=== PATIENT | female | born 1995 | race Caucasian/White ===

== ENCOUNTER 2017-05-02 18:33 | Emergency (ER) | payer OTHER ==
--- NOTE | 2017-05-02 18:51 | EDPHY ---
H & P Time Seen by Provider: 05/02/17 18:39 HPI/ROS: Chief complaint: Right hand laceration History of present illness: This is a 21-year-old female who presents to the emergency department for right hand laceration. Patient was sharpening her ski edges when her hand slipped and she cut her right hand on it. Small wound with a mild pain and bleeding that has been controlled. She states she is able to move the hand well, specifically all digits and the wrist without difficulty. No report of abnormal coolness or paresthesias in the hand. She believes her tetanus is up-to-date. Smoking Status: Never smoked Physical Exam: General: Alert, nontoxic Skin: There is a 1.5 cm avulsion to the right thenar eminence. Exploration does not reveal deep structure involvement. Musculoskeletal: Patient moving all joints in all digits in all clemente in the right hand well. She is moving the wrist in all clemente well. Vascular: Capillary refill brisk in all digits of the right hand. Radial pulse 2 +. Neurologic: Decreased sensation around the wound over the thenar eminence. Sensation is otherwise intact throughout the rest of the right hand including all digits. Constitutional: Initial Vital Signs Temperature (C) 36.9 C 05/02/17 18:35 Heart Rate 79 05/02/17 18:35 Respiratory Rate 16 05/02/17 18:35 Blood Pressure 108/84 H 05/02/17 18:35 O2 Sat (%) 98 05/02/17 18:35 O2 Delivery Mode Room Air Allergies/Adverse Reactions: No Known Allergies Allergy (Verified 05/02/17 18:34) Home Medications: Medication Instructions Recorded NK [No Known Home Meds] 05/02/17 MDM/Departure - MDM Procedures: Procedure: Laceration repair. Verbal consent was obtained from the patient. The 1.5 cm skin avulsion on the right thenar eminence was anesthetized in the usual fashion. The wound was irrigated, draped and explored to its base with a gloved finger. There were no deep structures involved. No tendon injury was identified. The wound was repaired with 6 0 Prolene, 4 simple interrupted sutures. The wound repair was simple. The procedure was performed by myself. Procedure: Splint placement. A Velcro thumb spica splint was applied. After application of the splint I returned and re-examined the patient. The splint was adequately immobilizing the joint and distal to the splint the patient's circulation and sensation was intact. ED Course/Re-evaluation: Patient is seen under the supervision of my primary supervising physician Dr. Mine Whelan. Patient presents to the emergency department for a right thumb laceration. I am somewhat concerned with decreased sensation around the wound on the thenar eminence. She has good vascular supply to the right hand. Wound is anesthetized, cleaned and repaired. It is splinted. I have discussed the importance of close follow-up with a hand doctor for recheck. Referral information is provided. Return precautions are given. Patient voiced understanding and agreement with plan. Differential Diagnosis: Included but not limited to soft tissue injury, deep structure injury, foreign body contamination - Depart Disposition: Home, Routine, Self-Care Clinical Impression: Hand laceration Qualifiers: Encounter type: initial encounter Foreign body presence: without foreign body Laterality: right Qualified Code(s): S61.411A - Laceration without foreign body of right hand, initial encounter Condition: Good Instructions: Care For Your Stitches (ED), Laceration (ED), Acute Wounds (ED) Additional Instructions: Follow-up with a hand surgeon for recheck. I am concerned you may have injured a nerve in your hand, this must be re-evaluated to prevent long-term disability. Stitches to be removed in 7 days If symptoms worsen or new symptoms develop return to the emergency room for recheck Referrals: NONE *PRIMARY CARE P,. [Primary Care Provider] - As per Instructions Shashi Underwood MD [Medical Doctor] - As per Instructions
[2017-05-02] MEDS ORDERED: BACITRACIN OINTMENT 1 PACKET TP ONE (19:22)
[2017-05-02 19:35] VITALS: BP 150/75; PULSE 88; RESP 18; TEMP 98.6; O2SAT 97
== END 2017-05-02 19:35 | disposition home or self-care (01) ==
PROC: 0HQFXZZ Repair Right Hand Skin, External Approach (ICD-10-PCS; principal; 2017-05-02)
DX: S61.411A Laceration without foreign body of right hand, initial encounter (principal); W26.8XXA Contact with other sharp object(s), not elsewhere classified, initial encounter; Y99.8 Other external cause status; Y93.89 Activity, other specified